=== PATIENT | female | born 1975 | race Caucasian/White ===

== ENCOUNTER 2018-03-28 13:19 | Emergency (ER) | payer MEDICARE, SELFPAY ==
[2018-03-28 13:23] VITALS: BP 126/88; PULSE 78; RESP 14; TEMP 36.7; O2SAT 99
--- NOTE | 2018-03-28 13:44 | DI.RAD.S_ITS ---
PROCEDURE: XR CHEST 1V INDICATIONS: chest pain TECHNIQUE: One view of the chest was acquired. COMPARISON: [facility], , CHEST 2 VIEW, 08/04/2017, 10:58. FINDINGS: Surgical changes and devices: None. Lungs and pleura: No pleural effusions or pneumothorax. Lungs are clear. Mediastinum: Mediastinal contours appear normal. Heart size is normal. Bones and chest wall: No suspicious bony lesions. Overlying soft tissues appear unremarkable. IMPRESSION: 1. No acute cardiopulmonary disease. Dictated by: Isauro Blum M.D. on 03/28/2018 at 14:04 Approved by: Isauro Blum M.D. on 03/28/2018 at 14:10
--- NOTE | 2018-03-28 13:49 | ED.CHESTPAIN ---
HPI - Chest Pain General Chief Complaint: Chest Pain Stated Complaint: CHEST PAINS, NAUSEA Time Seen by Provider: 03/28/18 13:33 Source: patient Mode of arrival: ambulatory Limitations: no limitations History of Present Illness HPI narrative: Patient is a 43-year-old female presents with chest pain for the last days. She feels a squeezing in her chest. She has not been using her asthma medication. She also restarted smoking about 1-2 cigarettes a week. She denies any shortness of breath no heart palpitations. Her chest pain have not both at rest and with exertion it is nonradiating. She denies any cough or fever MD complaint: chest pain Related Data Home Medications Medication Instructions Recorded Confirmed albuterol sulfate [Ventolin HFA] #0 02/05/17 01/22/18 citalopram [Celexa] 40 mg PO QDAY #0 05/20/17 01/22/18 lamotrigine [Lamictal] 200 mg PO QDAY #0 05/20/17 01/22/18 montelukast [Singulair] 10 mg PO QDAY #0 05/20/17 01/22/18 [Vitamin d3 drops] #0 10/16/17 01/22/18 [chasteberry] #0 10/16/17 01/22/18 clonazepam 1 mg PO TID PRN #0 12/20/17 01/22/18 dextroamphetamine-amphetamine 20 mg PO BID #0 12/20/17 01/22/18 [Adderall] Previous Rx's Medication Instructions Recorded cyclobenzaprine 10 mg PO Q8H PRN #30 tab 12/14/17 montelukast [Singulair] 10 mg PO QDAY #60 tab 12/20/17 Allergies Allergy/AdvReac Type Severity Reaction Status Date / Time acetaminophen [From TYLENOL] Allergy Unknown HIVES, Verified 03/28/18 13:27 ITCHING levofloxacin [LEVOFLOXACIN] Allergy Unknown Anaphylaxis Verified 03/28/18 13:27 morphine [MORPHINE] Allergy Unknown HIVES, Verified 03/28/18 13:27 ITCHING Review of Systems Review of Systems GENERAL: Denies chills, fatigue, malaise, fever, sweats, travel HEENT: Denies sinus pain, ear pain, sore throat, difficulty swallowing, neck pain RESPIRATORY: Denies dyspnea, cough, wheezing, hemoptysis, sputum. CARDIOVASCULAR: See HPI GASTROINTESTINAL: Denies nausea, vomiting, abdominal pain, diarrhea, constipation, melena. : Denies dysuria, frequency, incontinence, hematuria, urinary retention, flank pain. MUSCULOSKELETAL: Denies weakness, joint pain, or bony pain SKIN: No rash, no erythema, no pruritus NEUROLOGIC: Denies weakness, dizziness, headache, numbness, change in speech, confusion PSYCHIATRIC: No concerning psychosocial issues. 12 point review of systems is negative except for those stated above and HPI [facility] Medical History Asthma (Acute) Social History Smoking Status: Current some day smoker Exam Initial Vital Signs Initial Vital Signs: Vital Signs Temperature 98.1 F 03/28/18 13:23 Pulse Rate 78 03/28/18 13:23 Respiratory Rate 14 03/28/18 13:23 Blood Pressure 126/88 H 03/28/18 13:23 Pulse Oximetry 99 03/28/18 13:23 GENERAL: Well-appearing, well-nourished and in no acute distress. HEENT: Head atraumatic,EOMI, pupils reactive CARDIOVASCULAR: Regular rate and rhythm without murmurs, rubs or gallops. RESPIRATORY: Breath sounds equal bilaterally, no wheezes rales or rhonchi. ABDOMEN: Soft, nontender. Normoactive bowel sounds all 4 quadrants. No guarding or rebound. EXTREMITIES: Normal range of motion, no clubbing or edema. Neurovascularly intact NEUROLOGICAL: Alert and oriented x4.Normal gait and speech. SKIN: Warm, dry, no laceration, no petechiae, no rashes or lesions. Scores PERC Score Age greater than or equal to 50 years: No Heart rate greater than or equal to 100 bpm: No Room Air O2 Sat less than 95%: No Unilateral leg swelling: No Recent trauma or surgery: No Hemoptysis: No Prior PE or DVT: No Hormone Use: No Total PERC Score: 0 Course Orders Ordered: ED Orders 03/28/18 13:41 Complete Blood Count AUTO DIFF Stat Comprehensive Metabolic Panel Stat Lipase Stat Partial Thromboplastin Time Stat Prothrombin Time INR Stat Troponin & CK Cardiac Panel Stat 03/28/18 13:44 XR chest 1V Stat EKG-12 Lead Stat 03/28/18 13:56 D Dimer Stat Discontinued Medications Albuterol (Ventolin) 2.5 mg INH NOW ONE Stop: 03/28/18 14:20 Last Admin: 03/28/18 14:37 Dose: 2.5 mg Albuterol (Ventolin) 2.5 mg INH NOW PRN PRN Reason: Wheezing Last Admin: 03/28/18 14:57 Dose: 2.5 mg Vital Signs - 8 hr 03/28/18 13:23 03/28/18 13:57 03/28/18 14:30 Temperature 98.1 F Pulse Rate 78 66 60 Respiratory Rate 14 16 13 Blood Pressure 126/88 H Blood Pressure [Left Arm] 118/53 L 107/67 Pulse Oximetry 99 100 100 03/28/18 14:37 03/28/18 14:58 03/28/18 15:38 Temperature 99.1 F Pulse Rate 64 67 72 Respiratory Rate 14 18 16 Blood Pressure Blood Pressure [Left Arm] 121/62 H Pulse Oximetry 100 100 100 MDM - Chest Pain Lab Data Attestation: I reviewed the patient's lab results. Result diagrams: 03/28/18 13:41 03/28/18 13:41 Lab Results 03/28/18 03/28/18 03/28/18 Range/Units 13:41 13:41 13:41 WBC 3.8 L (4.5-11.0) X10^3/uL RBC 4.50 (4.0-5.2) X10^6/uL Hgb 13.2 (12.0-16.0) g/dL Hct 39.9 (36-46) % MCV 88.7 (80-100) fL MCH 29.4 (26-34) PG MCHC 33.1 (30-36) % RDW 13.8 (11.6-14.8) % Plt Count 256 (150-400) X10^3/uL Neut % (Auto) 59.8 (50-75) % Lymph % (Auto) 25.7 (25-40) % [place] % (Auto) 11.8 (3-14) % Eos % (Auto) 1.5 L (2-4) % Baso % (Auto) 1.2 (0-2) % Neut # (Auto) 2200 L (9616-2953) /uL PT 10.8 (10.1-12.7) SECONDS INR 1.0 (0.9-1.3) APTT 29 (26.4-36.2) SECONDS D-Dimer (<230) ng/mL Sodium 139 (137-145) mmol/L Potassium 3.7 (3.4-5.1) mmol/L Chloride 101 (98-107) mmol/L Carbon Dioxide 30 (22-32) mmol/L BUN 13 (7-17) mg/dL Creatinine 0.70 (0.52-1.04) mg/dL Estimated GFR > 60.0 (>60) mL/min BUN/Creatinine Ratio 18.6 (6-22) Glucose 70 (70-100) mg/dL Calcium 9.0 (8.4-10.2) mg/dL Total Bilirubin 0.5 (0.2-1.3) mg/dL AST 19 (14-36) IU/L ALT 17 (9-52) IU/L Alkaline Phosphatase 39 (38-126) U/L Total Creatine Kinase 59 (30-135) U/L Troponin I < 0.012 (0.01-0.034) ng/mL Total Protein 7.2 (6.3-8.2) g/dL Albumin 4.5 (3.5-5.0) g/dL Globulin 2.7 (1.7-4.1) g/dL Albumin/Globulin Ratio 1.7 (1.0-2.8) Lipase 88 (23-300) U/L 03/28/18 Range/Units 13:56 WBC (4.5-11.0) X10^3/uL RBC (4.0-5.2) X10^6/uL Hgb (12.0-16.0) g/dL Hct (36-46) % MCV (80-100) fL MCH (26-34) PG MCHC (30-36) % RDW (11.6-14.8) % Plt Count (150-400) X10^3/uL Neut % (Auto) (50-75) % Lymph % (Auto) (25-40) % [place] % (Auto) (3-14) % Eos % (Auto) (2-4) % Baso % (Auto) (0-2) % Neut # (Auto) (2213-5235) /uL PT (10.1-12.7) SECONDS INR (0.9-1.3) APTT (26.4-36.2) SECONDS D-Dimer 220 (<230) ng/mL Sodium (137-145) mmol/L Potassium (3.4-5.1) mmol/L Chloride (98-107) mmol/L Carbon Dioxide (22-32) mmol/L BUN (7-17) mg/dL Creatinine (0.52-1.04) mg/dL Estimated GFR (>60) mL/min BUN/Creatinine Ratio (6-22) Glucose (70-100) mg/dL Calcium (8.4-10.2) mg/dL Total Bilirubin (0.2-1.3) mg/dL AST (14-36) IU/L ALT (9-52) IU/L Alkaline Phosphatase (38-126) U/L Total Creatine Kinase (30-135) U/L Troponin I (0.01-0.034) ng/mL Total Protein (6.3-8.2) g/dL Albumin (3.5-5.0) g/dL Globulin (1.7-4.1) g/dL Albumin/Globulin Ratio (1.0-2.8) Lipase (23-300) U/L Imaging Data Chest x-ray: Radiologist's impression: PROCEDURE: XR CHEST 1V INDICATIONS: chest pain TECHNIQUE: One view of the chest was acquired. COMPARISON: [facility], CHEST 2 VIEW, 08/04/2017, 10:58. FINDINGS: Surgical changes and devices: None. Lungs and pleura: No pleural effusions or pneumothorax. Lungs are clear. Mediastinum: Mediastinal contours appear normal. Heart size is normal. Bones and chest wall: No suspicious bony lesions. Overlying soft tissues appear unremarkable. IMPRESSION: 1. No acute cardiopulmonary disease. Dictated by: Isauro Blum M.D. on 03/28/2018 at 14:04 ECG Data Attestation: I personally reviewed and interpreted this ECG as follows: Prior ECG tracings: not available for review Interpretation: Normal sinus rhythm rate 61 no ischemia MDM Narrative Medical decision making narrative: The patient is feeling a lot better after her albuterol treatments. Blood work EKG x-ray within normal limits. Discharge Plan Departure Patient Disposition: Home, Self-Care Clinical Impression: Atypical chest pain, Asthma Discharge Date/Time: 03/28/18 15:56 Interventions: ED Discharge Assessment Last Done: 03/28/18 15:56 Instructions: Asthma -- Adult, DI for Atypical Chest Pain Activity Restrictions/Additional Instructions: *You have been diagnosed with atypical chest pain, at *What to do: Stop smoking *Continue to take medications as directed -out dural every 4 hr with spacer needed for chest pain or shortness of breath *Follow up with your primary care provider in 2-3 days *Return to ER if you should have worsening chest pain, palpitation or any new, worsening or concerning symptoms Prescriptions: No Action albuterol sulfate [Ventolin HFA] 90 MCG/PUFF HFA aerosol inhaler Qty: 0 RF: 0 lamotrigine [Lamictal] 200 MG tablet 200 mg PO QDAY Qty: 0 RF: 0 citalopram [Celexa] 40 MG tablet 40 mg PO QDAY Qty: 0 RF: 0 montelukast [Singulair] 10 MG tablet 10 mg PO QDAY Qty: 0 RF: 0 [chasteberry] Qty: 0 RF: 0 [Vitamin d3 drops] Qty: 0 RF: 0 cyclobenzaprine 10 MG tablet 10 mg PO Q8H PRNQty: 30 RF: 0 clonazepam 1 MG tablet 1 mg PO TID PRNQty: 0 RF: 0 dextroamphetamine-amphetamine [Adderall] 20 MG tablet 20 mg PO BID Qty: 0 RF: 0 montelukast [Singulair] 5 MG tablet,chewable 10 mg PO QDAY Qty: 60 RF: 3 Referrals: Aminata Flores DO [Primary Care Provider] -
[2018-03-28 13:57] VITALS: BP 118/53; PULSE 66; RESP 16; O2SAT 100
[2018-03-28 13:59] LABS: Prothrombin Time 10.8 SECONDS (10.1-12.7)
[2018-03-28 14:01] LABS: PTT Partial Thromboplastin Tim 29 SECONDS (26.4-36.2)
[2018-03-28 14:06] LABS: Alanine Aminotransferase 17 IU/L (9-52); Albumin 4.5 g/dL (3.5-5.0); Albumin Globulin Ratio 1.7 (1.0-2.8); Alkaline Phosphatase 39 U/L (38-126); Aspartate Aminotransferase 19 IU/L (14-36); BUN Creatinine Ratio 18.6 (6-22); Bilirubin Total 0.5 mg/dL (0.2-1.3); Blood Urea Nitrogen 13 mg/dL (7-17); Carbon Dioxide 30 mmol/L (22-32); Chloride 101 mmol/L (98-107); Creatine Kinase 59 U/L (30-135); Estimated Glomerular Filt Rate > 60.0 mL/min (>60); Globulin 2.7 g/dL (1.7-4.1); Glucose 70 mg/dL (70-100); HEMOLYSIS < 15 (0-50); Lipase 88 U/L (23-300); Potassium 3.7 mmol/L (3.4-5.1); Sodium 139 mmol/L (137-145); Total Protein 7.2 g/dL (6.3-8.2)
[2018-03-28 14:24] LABS: Add Manual Diff / Slide Review NO; Basophils Percent Auto 1.2 % (0-2); Eosinophils Percent Auto 1.5 % (2-4); Hematocrit 39.9 % (36-46); Hemoglobin 13.2 g/dL (12.0-16.0); Lymphocytes Percent Auto 25.7 % (25-40); Mean Corpuscular HGB Conc 33.1 % (30-36); Mean Corpuscular Hemoglobin 29.4 PG (26-34); Mean Corpuscular Volume 88.7 fL (80-100); Monocytes Percent Auto 11.8 % (3-14); Neutrophils Absolute Auto 2200 /uL (3000-5900); Neutrophils Percent Auto 59.8 % (50-75); Platelet Count 256 X10^3/uL (150-400); Red Cell Distribution Width 13.8 % (11.6-14.8); White Blood Cell Count 3.8 X10^3/uL (4.5-11.0)
[2018-03-28 14:27] LABS: D Dimer 220 ng/mL (<230)
[2018-03-28 14:30] VITALS: BP 107/67; PULSE 60; RESP 13; O2SAT 100
[2018-03-28 14:35] LABS: Troponin I < 0.012 ng/mL (0.01-0.034)
[2018-03-28 14:37] VITALS: PULSE 64; RESP 14; O2SAT 100
[2018-03-28] MEDS: ALBUTEROL 2.5 MG/3 ML NEB (ADULT) INH ×2 (14:37→14:57)
[2018-03-28 14:58] VITALS: PULSE 67; RESP 18; O2SAT 100
[2018-03-28 15:38] VITALS: BP 121/62; PULSE 72; RESP 16; TEMP 37.3; O2SAT 100
== END 2018-03-28 15:56 | disposition home or self-care (01) ==
PROVIDERS: Emergency Provider Emergency Medicine; Family Provider Family Medicine; PCP Family Medicine
DX: R07.89 Other chest pain (principal); J45.909 Unspecified asthma, uncomplicated
CPT/HCPCS: 36591; 71045; 80053; 82550; 82553; 83690; 84484; 85025; 85379; 85610; 85730; 93005; 94150; 94640; 99283; J7613

== ENCOUNTER 2018-05-19 16:38 | Emergency (ER) | payer MEDICARE, SELFPAY ==
[2018-05-19 16:56] VITALS: BP 106/71; PULSE 60; RESP 20; TEMP 37.4; O2SAT 99; BMI 22.2
--- NOTE | 2018-05-19 18:14 | ED_ITS ---
HPI - Female Genitourinary <Mallory Augustine PA-C - Last Filed: 05/19/18 22:01> General Chief complaint: Vaginal Bleeding Stated complaint: heavy bleeding clots Time Seen by Provider: 05/19/18 18:13 Source: patient Mode of arrival: ambulatory Limitations: no limitations History of Present Illness HPI Narrative: This 43-year-old female complains of heavy vaginal bleeding and passing clots. She states that she started to pass some clots larger than golf ball on , but by yesterday the bleeding has become like ?water?. She states that she is soaking through a super heavy pad every 30 min to 2 hr. She states that she has some crampy pain and can feel this in her back at times. Prior to onset of the bleeding, she states that she was feeling a lot more bloated and states that she actually gained about 10 lb in the week or 2 prior which is unusual for her. She states that her last period was just about a month ago and initially she thought this was the start of her regular menses, but this has been very atypical. She denies any urinary symptoms. She denies any nausea or vomiting. She denies any chest pain or dyspnea. No family history in her or family members of clotting disorders or bleeding disorders Related Data Home Medications Medication Instructions Recorded Confirmed albuterol sulfate [Ventolin HFA] #0 02/05/17 05/08/18 citalopram [Celexa] 40 mg PO QDAY #0 05/20/17 05/08/18 lamotrigine [Lamictal] 200 mg PO QDAY #0 05/20/17 05/08/18 montelukast [Singulair] 10 mg PO QDAY #0 05/20/17 05/08/18 [Vitamin d3 drops] #0 10/16/17 05/08/18 [chasteberry] #0 10/16/17 05/08/18 clonazepam 1 mg PO TID PRN #0 12/20/17 05/08/18 dextroamphetamine-amphetamine 20 mg PO BID #0 12/20/17 05/08/18 [Adderall] Previous Rx's Medication Instructions Recorded cyclobenzaprine 10 mg PO Q8H PRN #30 tab 12/14/17 montelukast [Singulair] 10 mg PO QDAY #60 tab 12/20/17 Allergies Allergy/AdvReac Type Severity Reaction Status Date / Time acetaminophen [From TYLENOL] Allergy Unknown HIVES, Verified 05/19/18 17:01 ITCHING levofloxacin [LEVOFLOXACIN] Allergy Unknown Anaphylaxis Verified 05/19/18 17:01 morphine [MORPHINE] Allergy Unknown HIVES, Verified 05/19/18 17:01 ITCHING egg whites Allergy Unknown Uncoded 05/19/18 17:01 shell fish Allergy Unknown Uncoded 05/19/18 17:01 Review of Systems <Mallory Augustine PA-C - Last Filed: 05/19/18 22:01> Review of Systems All systems reviewed & are unremarkable except as noted in HPI and below PFSH <MARCELLE Vela Last Filed: 05/19/18 22:01> Comment: No street drugs Exam <MARCELLE Vela Last Filed: 05/19/18 22:01> Narrative Exam Narrative: GENERAL APPEARANCE: Patient sitting comfortably, in no distress. HEENT: PERRL, EOMI, no scleral icterus, conjunctivae pink NECK: Supple LUNGS: Clear to auscultation bilaterally. HEART: Rate and rhythm regular, normal S1 and S2, no S3 or S4. ABDOMEN: Soft, nondistended, bowel sounds present x 4 quadrants, no masses palpable, no hepatosplenomegaly. Mild generalized lower quadrant tenderness, most focused tenderness over the suprapubic area. No guarding or rebound. No CVAT EXTREMITIES: No edema, no cyanosis DERMATOLOGIC: No jaundice or exanthem NEUROLOGIC: Alert and oriented with normal speech and coordination Initial Vital Signs Initial Vital Signs: Vital Signs Temperature 99.3 F 05/19/18 16:56 Pulse Rate 60 05/19/18 16:56 Respiratory Rate 20 05/19/18 16:56 Blood Pressure 106/71 05/19/18 16:56 Pulse Oximetry 99 05/19/18 16:56 <Karan Russell DO - Last Filed: 05/19/18 22:18> Initial Vital Signs Initial Vital Signs: Vital Signs Temperature 99.3 F 05/19/18 16:56 Pulse Rate 60 05/19/18 16:56 Respiratory Rate 20 05/19/18 16:56 Blood Pressure 106/71 05/19/18 16:56 Pulse Oximetry 99 05/19/18 16:56 Course <Mallory Augustine PA-C - Last Filed: 05/19/18 22:01> Additional Information: Patient noted improvement by the time of d/c. Bleeding had slowed, pain improved and was hungry. She was given some [place] for this evening as she has taken that previously without problems. She agreed to return if acutely worsening again over the weekend, otherwise will call her PCP on Monday to arrange for f/u Orders Ordered: ED Orders 05/19/18 16:10 Complete Blood Count MAN DIFF Stat Comprehensive Metabolic Panel Stat Prothrombin Time INR Stat 05/19/18 18:10 HCG Quantitative Stat 05/19/18 18:50 US pelvic complete Stat Discontinued Medications Hydrocodone Bitart/Acetaminophen (Vicodin Prepack) 1 bottle MISC SEEINSTR ONE Stop: 05/19/18 21:23 Last Admin: 05/19/18 21:31 Dose: 1 bottle Sodium Chloride (Normal Saline 0.9%) 1,000 mls @ 1,000 mls/hr IV BOLUS ONE Stop: 05/19/18 19:49 Last Infusion: 05/19/18 19:58 Dose: 0 mls/hr Admin: 05/19/18 19:05 Dose: 1,000 mls/hr Ketorolac Tromethamine (Toradol) 30 mg IV NOW ONE Stop: 05/19/18 18:51 Last Admin: 05/19/18 19:05 Dose: 30 mg Vital Signs - 8 hr 05/19/18 16:56 05/19/18 18:15 05/19/18 20:00 Temperature 99.3 F Pulse Rate 60 55 L 58 L Respiratory Rate 20 14 15 Blood Pressure 106/71 Blood Pressure [Left Wrist] 123/84 112/96 H Pulse Oximetry 99 100 100 05/19/18 21:34 Temperature Pulse Rate 58 L Respiratory Rate 14 Blood Pressure Blood Pressure [Left Wrist] 127/84 Pulse Oximetry 100 <Karan Russell DO - Last Filed: 05/19/18 22:18> Orders Ordered: ED Orders 05/19/18 16:10 Complete Blood Count MAN DIFF Stat Comprehensive Metabolic Panel Stat Prothrombin Time INR Stat 05/19/18 18:10 HCG Quantitative Stat 05/19/18 18:50 US pelvic complete Stat Discontinued Medications Hydrocodone Bitart/Acetaminophen (Vicodin Prepack) 1 bottle MISC SEEINSTR ONE Stop: 05/19/18 21:23 Last Admin: 05/19/18 21:31 Dose: 1 bottle Sodium Chloride (Normal Saline 0.9%) 1,000 mls @ 1,000 mls/hr IV BOLUS ONE Stop: 05/19/18 19:49 Last Infusion: 05/19/18 19:58 Dose: 0 mls/hr Admin: 05/19/18 19:05 Dose: 1,000 mls/hr Ketorolac Tromethamine (Toradol) 30 mg IV NOW ONE Stop: 05/19/18 18:51 Last Admin: 05/19/18 19:05 Dose: 30 mg Vital Signs - 8 hr 05/19/18 16:56 05/19/18 18:15 05/19/18 20:00 Temperature 99.3 F Pulse Rate 60 55 L 58 L Respiratory Rate 20 14 15 Blood Pressure 106/71 Blood Pressure [Left Wrist] 123/84 112/96 H Pulse Oximetry 99 100 100 05/19/18 21:34 Temperature Pulse Rate 58 L Respiratory Rate 14 Blood Pressure Blood Pressure [Left Wrist] 127/84 Pulse Oximetry 100 MDM - Female Genitourinary <Mallory Augustine PA-C - Last Filed: 05/19/18 22:01> Lab Data Result diagrams: 05/19/18 16:10 05/19/18 16:10 Lab Results 05/19/18 05/19/18 05/19/18 Range/Units 16:10 16:10 16:10 WBC 5.0 (4.5-11.0) X10^3/uL RBC 4.05 (4.0-5.2) X10^6/uL Hgb 11.9 L (12.0-16.0) g/dL Hct 36.2 (36-46) % MCV 89.3 (80-100) fL MCH 29.4 (26-34) PG MCHC 32.9 (30-36) % RDW 15.7 H (11.6-14.8) % Plt Count 243 (150-400) X10^3/uL Total Counted 100 Seg Neutrophils % 61.0 (38-70) % Lymphocytes % (Manual) 28.0 (25-45) % Atypical Lymphs % 0.0 ( - 0) % Monocytes % (Manual) 7.0 (2-11) % Eosinophils % (Manual) 4.0 (2-4) % Neutrophils # (Manual) 3050 (8101-6567) /uL RBC Morphology Not Reportable Anisocytosis 1+ H PT 10.7 (10.1-12.7) SECONDS INR 1.0 (0.9-1.3) Sodium 142 (137-145) mmol/L Potassium 4.1 (3.4-5.1) mmol/L Chloride 105 (98-107) mmol/L Carbon Dioxide 30 (22-32) mmol/L BUN 13 (7-17) mg/dL Creatinine 0.70 (0.52-1.04) mg/dL Estimated GFR > 60.0 (>60) mL/min BUN/Creatinine Ratio 18.6 (6-22) Glucose 92 (70-100) mg/dL Calcium 8.7 (8.4-10.2) mg/dL Total Bilirubin 0.3 (0.2-1.3) mg/dL AST 16 (14-36) IU/L ALT 20 (9-52) IU/L Alkaline Phosphatase 34 L (38-126) U/L Total Protein 6.6 (6.3-8.2) g/dL Albumin 4.1 (3.5-5.0) g/dL Globulin 2.5 (1.7-4.1) g/dL Albumin/Globulin Ratio 1.6 (1.0-2.8) HCG, Quant mIU/mL 05/19/18 Range/Units 18:10 WBC (4.5-11.0) X10^3/uL RBC (4.0-5.2) X10^6/uL Hgb (12.0-16.0) g/dL Hct (36-46) % MCV (80-100) fL MCH (26-34) PG MCHC (30-36) % RDW (11.6-14.8) % Plt Count (150-400) X10^3/uL Total Counted Seg Neutrophils % (38-70) % Lymphocytes % (Manual) (25-45) % Atypical Lymphs % ( - 0) % Monocytes % (Manual) (2-11) % Eosinophils % (Manual) (2-4) % Neutrophils # (Manual) (0378-3661) /uL RBC Morphology Anisocytosis PT (10.1-12.7) SECONDS INR (0.9-1.3) Sodium (137-145) mmol/L Potassium (3.4-5.1) mmol/L Chloride (98-107) mmol/L Carbon Dioxide (22-32) mmol/L BUN (7-17) mg/dL Creatinine (0.52-1.04) mg/dL Estimated GFR (>60) mL/min BUN/Creatinine Ratio (6-22) Glucose (70-100) mg/dL Calcium (8.4-10.2) mg/dL Total Bilirubin (0.2-1.3) mg/dL AST (14-36) IU/L ALT (9-52) IU/L Alkaline Phosphatase (38-126) U/L Total Protein (6.3-8.2) g/dL Albumin (3.5-5.0) g/dL Globulin (1.7-4.1) g/dL Albumin/Globulin Ratio (1.0-2.8) HCG, Quant < 2.39 mIU/mL Point of Care Testing Test Results Negative Urine Dip Bedside Urine Glucose Negative Bedside Urine Bilirubin - Negative Bedside Urine Ketone - Negative Urine Specific Aline 1.015 Bedside Urine Occult Blood + Bedside Urine pH 7.5 Bedside Urine Protein - Negative Bedside Urine Urobilinogen - Negative Bedside Urine Nitrite - Negative Bedside Urine Leukocytes - Negative Esterase Imaging Data pelvis: Radiologist's impression: [place] [id number] Ultrasound Report Signed Patient: Dodie George MR#: [id number] : 1975 Acct:[id number] Age/Sex: 43 / F Date of Service: 05/19/18 Loc: ED Accession Number: [id number] Procedure: US pelvic complete Ordering Provider: Mallory Augustine P.A-C PROCEDURE: US PELVIC COMPLETE INDICATIONS: pain, clotting, severe bleeding, h/o fibroids TECHNIQUE: Real-time scanning was performed of the pelvic organs, with image documentation. Additional endovaginal scanning was necessary due to incomplete visualization of the adnexal and endometrial structures by transabdominal scanning. COMPARISON: None. FINDINGS: Transabdominal scanning: Limited scanning through the kidneys shows no hydronephrosis. No pathologic free abdominal or pelvic fluid. Endovaginal scanning: Uterus: Uterus is normal in size at 10.6 x 5.1 x 6.1 cm. The endometrium measures 3.4 mm in combined thickness. Ovaries: The right ovary measures 3.5 x 1.6 x 2.3 cm and has normal echotexture. The left ovary measures 4.2 x 2.3 x 2.7 cm. There is a complex, avascular left ovarian cyst which measures 2.7 x 2.1 x 2.4 cm. IMPRESSION: 1. Probable left hemorrhagic cyst versus endometrioma. 6-12 week followup recommended to ensure resolution of this finding. Dictated by: Brianne Yoo M.D. on 05/19/2018 at 20:59 Approved by: Brianne Yoo M.D. on 05/19/2018 at 21:01 <Karan Russell DO - Last Filed: 05/19/18 22:18> Lab Data Lab Results 05/19/18 05/19/18 05/19/18 Range/Units 16:10 16:10 16:10 WBC 5.0 (4.5-11.0) X10^3/uL RBC 4.05 (4.0-5.2) X10^6/uL Hgb 11.9 L (12.0-16.0) g/dL Hct 36.2 (36-46) % MCV 89.3 (80-100) fL MCH 29.4 (26-34) PG MCHC 32.9 (30-36) % RDW 15.7 H (11.6-14.8) % Plt Count 243 (150-400) X10^3/uL Total Counted 100 Seg Neutrophils % 61.0 (38-70) % Lymphocytes % (Manual) 28.0 (25-45) % Atypical Lymphs % 0.0 ( - 0) % Monocytes % (Manual) 7.0 (2-11) % Eosinophils % (Manual) 4.0 (2-4) % Neutrophils # (Manual) 3050 (3170-8542) /uL RBC Morphology Not Reportable Anisocytosis 1+ H PT 10.7 (10.1-12.7) SECONDS INR 1.0 (0.9-1.3) Sodium 142 (137-145) mmol/L Potassium 4.1 (3.4-5.1) mmol/L Chloride 105 (98-107) mmol/L Carbon Dioxide 30 (22-32) mmol/L BUN 13 (7-17) mg/dL Creatinine 0.70 (0.52-1.04) mg/dL Estimated GFR > 60.0 (>60) mL/min BUN/Creatinine Ratio 18.6 (6-22) Glucose 92 (70-100) mg/dL Calcium 8.7 (8.4-10.2) mg/dL Total Bilirubin 0.3 (0.2-1.3) mg/dL AST 16 (14-36) IU/L ALT 20 (9-52) IU/L Alkaline Phosphatase 34 L (38-126) U/L Total Protein 6.6 (6.3-8.2) g/dL Albumin 4.1 (3.5-5.0) g/dL Globulin 2.5 (1.7-4.1) g/dL Albumin/Globulin Ratio 1.6 (1.0-2.8) HCG, Quant mIU/mL 05/19/18 Range/Units 18:10 WBC (4.5-11.0) X10^3/uL RBC (4.0-5.2) X10^6/uL Hgb (12.0-16.0) g/dL Hct (36-46) % MCV (80-100) fL MCH (26-34) PG MCHC (30-36) % RDW (11.6-14.8) % Plt Count (150-400) X10^3/uL Total Counted Seg Neutrophils % (38-70) % Lymphocytes % (Manual) (25-45) % Atypical Lymphs % ( - 0) % Monocytes % (Manual) (2-11) % Eosinophils % (Manual) (2-4) % Neutrophils # (Manual) (7453-2637) /uL RBC Morphology Anisocytosis PT (10.1-12.7) SECONDS INR (0.9-1.3) Sodium (137-145) mmol/L Potassium (3.4-5.1) mmol/L Chloride (98-107) mmol/L Carbon Dioxide (22-32) mmol/L BUN (7-17) mg/dL Creatinine (0.52-1.04) mg/dL Estimated GFR (>60) mL/min BUN/Creatinine Ratio (6-22) Glucose (70-100) mg/dL Calcium (8.4-10.2) mg/dL Total Bilirubin (0.2-1.3) mg/dL AST (14-36) IU/L ALT (9-52) IU/L Alkaline Phosphatase (38-126) U/L Total Protein (6.3-8.2) g/dL Albumin (3.5-5.0) g/dL Globulin (1.7-4.1) g/dL Albumin/Globulin Ratio (1.0-2.8) HCG, Quant < 2.39 mIU/mL Point of Care Testing Test Results Negative Urine Dip Bedside Urine Glucose Negative Bedside Urine Bilirubin - Negative Bedside Urine Ketone - Negative Urine Specific Aline 1.015 Bedside Urine Occult Blood + Bedside Urine pH 7.5 Bedside Urine Protein - Negative Bedside Urine Urobilinogen - Negative Bedside Urine Nitrite - Negative Bedside Urine Leukocytes - Negative Esterase Discharge Plan Departure Patient Disposition: Home Clinical Impression: Endometrioma of ovary, Excessive vaginal bleeding Discharge Date/Time: 05/19/18 21:37 Interventions: ED Discharge Assessment Last Done: 05/19/18 21:37 Instructions: DI for Ovarian Cyst Activity Restrictions/Additional Instructions: Please return as we talked about if you have any acutely worsening symptoms. Otherwise, you can take the pain pills I sent home with you tonight as needed ( do not drive as they may make you sleepy). You can try a warm pack. You have a cyst on your ovary that may be a type of bleeding cyst due to your endometriosis. This may have ruptured causing excessive bleeding (this could also be in addition to your normal period). Please call your PCP on Monday to schedule follow up. If you are still having excessive bleeding, she may want to to see gynecology. Otherwise, typically we want to follow-up on these cysts with ultrasound in a couple of months to make sure they resolve, and this can be done as an outpatient Prescriptions: No Action albuterol sulfate [Ventolin HFA] 90 MCG/PUFF HFA aerosol inhaler Qty: 0 RF: 0 lamotrigine [Lamictal] 200 MG tablet 200 mg PO QDAY Qty: 0 RF: 0 citalopram [Celexa] 40 MG tablet 40 mg PO QDAY Qty: 0 RF: 0 montelukast [Singulair] 10 MG tablet 10 mg PO QDAY Qty: 0 RF: 0 [chasteberry] Qty: 0 RF: 0 [Vitamin d3 drops] Qty: 0 RF: 0 cyclobenzaprine 10 MG tablet 10 mg PO Q8H PRNQty: 30 RF: 0 clonazepam 1 MG tablet 1 mg PO TID PRNQty: 0 RF: 0 dextroamphetamine-amphetamine [Adderall] 20 MG tablet 20 mg PO BID Qty: 0 RF: 0 montelukast [Singulair] 5 MG tablet,chewable 10 mg PO QDAY Qty: 60 RF: 3 Referrals: Aminata Flores DO [Primary Care Provider] - <Karan Russell DO - Last Filed: 05/19/18 22:18> Cosign ED Attending Yessy Attestation: I was immediately available in the department for consultation. Documentation has been reviewed. I agree with assessment and plan.
[2018-05-19 18:15] VITALS: BP 123/84; PULSE 55; RESP 14; O2SAT 100
[2018-05-19 18:22] LABS: Hematocrit 36.2 % (36-46); Hemoglobin 11.9 g/dL (12.0-16.0); Mean Corpuscular HGB Conc 32.9 % (30-36); Mean Corpuscular Hemoglobin 29.4 PG (26-34); Mean Corpuscular Volume 89.3 fL (80-100); Platelet Count 243 X10^3/uL (150-400); Red Blood Cell Count 4.05 X10^6/uL (4.0-5.2); Red Cell Distribution Width 15.7 % (11.6-14.8)
[2018-05-19 18:32] LABS: Prothrombin Time 10.7 SECONDS (10.1-12.7)
[2018-05-19 18:36] LABS: Alanine Aminotransferase 20 IU/L (9-52); Albumin 4.1 g/dL (3.5-5.0); Albumin Globulin Ratio 1.6 (1.0-2.8); Alkaline Phosphatase 34 U/L (38-126); Aspartate Aminotransferase 16 IU/L (14-36); BUN Creatinine Ratio 18.6 (6-22); Bilirubin Total 0.3 mg/dL (0.2-1.3); Blood Urea Nitrogen 13 mg/dL (7-17); Calcium 8.7 mg/dL (8.4-10.2); Carbon Dioxide 30 mmol/L (22-32); Chloride 105 mmol/L (98-107); Estimated Glomerular Filt Rate > 60.0 mL/min (>60); Globulin 2.5 g/dL (1.7-4.1); Glucose 92 mg/dL (70-100); HEMOLYSIS < 15 (0-50); Potassium 4.1 mmol/L (3.4-5.1); Sodium 142 mmol/L (137-145); Total Protein 6.6 g/dL (6.3-8.2)
--- NOTE | 2018-05-19 18:50 | DI.US.S_ITS ---
PROCEDURE: US PELVIC COMPLETE INDICATIONS: pain, clotting, severe bleeding, h/o fibroids TECHNIQUE: Real-time scanning was performed of the pelvic organs, with image documentation. Additional endovaginal scanning was necessary due to incomplete visualization of the adnexal and endometrial structures by transabdominal scanning. COMPARISON: None. FINDINGS: Transabdominal scanning: Limited scanning through the kidneys shows no hydronephrosis. No pathologic free abdominal or pelvic fluid. Endovaginal scanning: Uterus: Uterus is normal in size at 10.6 x 5.1 x 6.1 cm. The endometrium measures 3.4 mm in combined thickness. Ovaries: The right ovary measures 3.5 x 1.6 x 2.3 cm and has normal echotexture. The left ovary measures 4.2 x 2.3 x 2.7 cm. There is a complex, avascular left ovarian cyst which measures 2.7 x 2.1 x 2.4 cm. IMPRESSION: 1. Probable left hemorrhagic cyst versus endometrioma. 6-12 week followup recommended to ensure resolution of this finding. Dictated by: Brianne Yoo M.D. on 05/19/2018 at 20:59 Approved by: Brianne Yoo M.D. on 05/19/2018 at 21:01
[2018-05-19 18:52] LABS: HCG Quantitative /Beta subunit < 2.39 mIU/mL
[2018-05-19] MEDS: KETOROLAC 60 MG/2 ML VIAL 30 MG IV (19:05)
[2018-05-19] MEDS: SODIUM CHLORIDE 0.9% 1,000 ML 1000 ML IV (19:05)
[2018-05-19 19:24] LABS: Total Cells Counted 100
[2018-05-19 19:25] LABS: Neutrophils Absolute Manual 3050 /uL (3000-5900)
[2018-05-19 19:26] LABS: Anisocytosis 1+
[2018-05-19 20:00] VITALS: BP 112/96; PULSE 58; RESP 15; O2SAT 100
[2018-05-19] MEDS: HYDROCODONE/ACET 5/325 PREPACK 1 BOTTLE MISC (21:31)
[2018-05-19 21:34] VITALS: BP 127/84; PULSE 58; RESP 14; O2SAT 100
== END 2018-05-19 21:37 | disposition home or self-care (01) ==
PROVIDERS: Emergency Provider Internal Medicine; Family Provider Family Medicine; PCP Family Medicine
DX: N80.1 Endometriosis of ovary (principal); N92.0 Excessive and frequent menstruation with regular cycle
CPT/HCPCS: 36415; 36591; 76830; 76856; 80053; 81003; 81025; 84702; 85025; 85610; 96361; 96374; 99283; 99284; J1885

== ENCOUNTER → 2018-07-17 11:21 | Outpatient (CLI) | payer MEDICARE, SELFPAY ==
--- NOTE | 2018-07-17 | DI.MRI.S_ITS ---
PROCEDURE: MR SHOULDER LT WO CON INDICATIONS: STRAIN OF MUSCLE AT NECK LEVEL,BURSITIS OF LEFT SH TECHNIQUE: Noncontrast oblique coronal T2 fast spin echo with fat saturation, oblique sagittal T1 spin echo and T2 fast spin echo with fat saturation, axial T1 spin echo and T2 fast spin echo with fat saturation through the shoulder. COMPARISON: [facility], , SHOULDER MINIMUM 2 VIEW LEFT, 02/05/2017, 15:24. FINDINGS: Image quality: Excellent. Rotator cuff: Supraspinatus, infraspinatus and teres minor appear intact. There is mild intrasubstance signal change suggestive of subscapularis tendinopathy, image 18 series 10 although recommend close clinical correlation given the subtle MR appearance. No atrophy of the rotator cuff musculature. Bones and bursae: No bone marrow contusions or fractures. No acromioclavicular joint degeneration. The acromion demonstrates conventional anatomy, without an os acromiale. Mild subacromial-subdeltoid bursal fluid is present. Capsule and soft tissues: No definite labral tear however anterosuperior labrum is diminutive and there is markedly thickened appearance of the middle glenohumeral ligament suggestive of labrocapsuloligamentous anatomic variation, such as Jose complex. The long head of the biceps tendon demonstrates normal location and morphology. The rotator interval appears normal, without fibrosis. The coracohumeral ligament is not well seen, potentially ruptured although age indeterminate. There is preservation of the subcoracoid fat. IMPRESSION: Mild subscapularis tendinopathy and intrasubstance signal change. Please correlate exam findings. Mild subacromial/subacute bursitis. Dictated by: Sarabjit Vega M.D. on 07/17/2018 at 14:20 Approved by: Sarabjit Vega M.D. on 07/17/2018 at 14:31
--- NOTE | 2018-07-17 | DI.MRI.S_ITS ---
PROCEDURE: MR CERVICAL SPINE WO CON INDICATIONS: STRAIN OF MUSCLE AT NECK LEVEL,BURSITIS OF LEFT SH TECHNIQUE: Noncontrast sagittal T1 spin echo and T2 fast spin echo, sagittal STIR, foraminal oblique sagittal T2 fast spin echo, and axial gradient echo or T2 fast spin echo through the cervical spine. COMPARISON: [facility], CT, C-SPINE WITHOUT CONTRAST, 02/05/2017, 15:17. [facility], CR, CERVICAL SPINE 2 OR 3 VIEWS, 01/11/2018, 20:19. FINDINGS: Image quality: Excellent. Alignment and Curvature: There is mild loss of cervical lordosis, otherwise normal bony alignment. Bone Marrow: Marrow demonstrates normal overall signal. Spinal Cord: Visualized spinal cord has normal size and signal. No cerebellar tonsillar herniation. Paraspinous Soft Tissues: No paravertebral masses. Prevertebral soft tissues are normal in thickness. C2-C3: Normal appearance. C3-C4: Preserved disc height and disc desiccation. There is mild posterior disc bulge and uncovertebral hypertrophy. The central canal is patent. No foraminal stenosis. C4-C5: Preserved disc height and disc desiccation. There is mild posterior disc bulge and uncovertebral hypertrophy. The central canal is patent. No foraminal stenosis. C5-C6: Normal appearance. C6-C7: Normal appearance. C7-T1: Normal appearance. IMPRESSION: 1. Early degenerative changes in cervical spine with mild posterior disc bulge and uncovertebral hypertrophy at C3-C4 and C4-C5. 2. No central canal stenosis. 3. No foraminal stenosis. Dictated by: Dex Lucas M.D. on 07/17/2018 at 15:54 Approved by: Dex Lucas M.D. on 07/17/2018 at 16:00
== END ==
PROVIDERS: Family Provider Family Medicine; PCP Family Medicine; Visit Provider Physical Medicine & Rehabilitation
DX: S16.1XXA Strain of muscle, fascia and tendon at neck level, initial encounter (principal); M75.52 Bursitis of left shoulder
CPT/HCPCS: 72141; 73221

== ENCOUNTER 2018-11-26 13:17 | Emergency (ER) | payer MEDICARE, SELFPAY | END 2018-11-26 14:57 | disposition left against medical advice (07) | PROVIDERS: Emergency Provider Emergency Medicine; Family Provider Family Medicine; PCP Family Medicine | CPT/HCPCS: 99281 ==